=== PATIENT | female | born 1965 | race Caucasian/White ===

== ENCOUNTER 2025-06-09 14:48 | Outpatient (CLI) | payer OTHER, SELFPAY ==
--- NOTE | 2025-06-09 15:00 | US_ITS ---
WS: [id number] US transvaginal 07053 HISTORY: N95.0 - Postmenopausal bleeding COMPARISON: None available. Uterus: 6.1 cm x 3.5 cm x 2.6 cm. Normal size anteverted uterus. No fibroid or mass. Endometrium: 0.3 cm. Normal. No increased vascularity. Neither ovary is identified. No adnexal mass is identified. No free fluid in the cul-de-sac. US/US transvaginal [id number] IMPRESSION: 1. Normal uterus. 2. Normal endometrium. 3. Neither ovary is identified.
== END 2025-06-09 14:49 | disposition home or self-care (01) ==
LOC: RAD 14:51
PROVIDERS: PCP Nurse Practitioner Women's Health; Visit Provider Nurse Practitioner Women's Health
DX: N95.0 Postmenopausal bleeding (principal); R10.20 Pelvic and perineal pain unspecified side
CPT/HCPCS: 76830